=== PATIENT | male | born 1955 | race Caucasian/White ===

== ENCOUNTER 2017-07-08 10:17 | Emergency (ER) | payer OTHER ==
[~2017-07-08] VITALS: Ht 175.3 cm; Wt 63.5 kg
[2017-07-08] MEDS ORDERED: AMITRIPTYLINE H10 M3 PO (11:35)
[2017-07-08] MEDS ORDERED: CARISOPRODOL 3350 MG PO (11:36)
[2017-07-08] MEDS ORDERED: CLONAZEPAM 1 MG1 M1 PO (11:36)
[2017-07-08 14:03] VITALS: BP 132/68
== END 2017-07-08 14:06 | disposition short-term general hospital (02) ==
LOC: ER 10:17
DX: S12.110A Anterior displaced Type II dens fracture, initial encounter for closed fracture (principal); F17.210 Nicotine dependence, cigarettes, uncomplicated; Z98.890 Other specified postprocedural states; W18.09XA Striking against other object with subsequent fall, initial encounter; Y93.89 Activity, other specified; Y92.59 Other trade areas as the place of occurrence of the external cause; Y99.8 Other external cause status